=== PATIENT | female | born 1945 | race Caucasian/White ===

== ENCOUNTER 2016-09-24 12:17 | Emergency (ER) | payer OTHER, BC ==
[~2016-09-24] VITALS: Ht 165.1 cm; Wt 100.9 kg
[~2016-09-24 12:17] MED LIST: ASPIRIN81 M2 PO; ATENOLOL50 MG PO; ATORVASTATIN CA20 MG PO; CITALOPRAM HBR40 MG PO; DOXAZOSIN MESYLA8 MG PO; NAPROXEN500 MG PO; NEXIUM; PERCOCET 5/31 TABLET PO
[2016-09-24 13:45] LABS: ADD MIUA? YES; BILIRUBIN NEGATIVE; BLOOD NEGATIVE; COLOR YELLOW ((YELLOW)); GLUCOSE (STRIP) NEGATIVE; KETONES NEGATIVE; LEUKOCYTES SMALL; NITRITE NEGATIVE; PROTEIN (STRIP) NEGATIVE; SPECIFIC GRAVITY 1.017 (1.000-1.030); UROBILINOGEN 0.2 MG/DL (0.2-1.0)
[2016-09-24 13:45] LABS: HEMATOCRIT 33.8 % (36.0-46.0); MCH 27.9 PG (29.0-34.0); MCV 87.3 FL (83-99); MEAN PLAT.VOLUME 11.2 uM^3 (9.5-12.4); PLATELET COUNT 178 K/uL (156-360); RBC DIS.WIDTH-CV 13.3 % (11.8-14.6); RED BLOOD COUNT 3.87 M/uL (3.80-5.20); WHITE BLOOD COUNT 6.1 K/uL (4.1-10.2)
[2016-09-24 13:59] LABS: CHLORIDE 103 mEq/L (99-109); POTASSIUM 4.4 mEq/L (3.7-5.4); SODIUM 139 mEq/L (136-147)
[2016-09-24 14:01] LABS: GLUCOSE 105 mg/dL (70-99)
[2016-09-24 14:02] LABS: ANION GAP 9 MEQ/L (2-14)
[2016-09-24 14:03] LABS: TOTAL BILIRUBIN 0.3 mg/dL (0.0-1.0)
[2016-09-24 14:04] LABS: ALKALINE PHOSPHATASE 92 IU/L (3-129)
[2016-09-24 14:05] LABS: GFR ESTIMATE (CALCULATED) > 59 mL/min/
[2016-09-24 14:06] LABS: UREA NITROGEN (BUN) 13 mg/dL (9-23)
[2016-09-24 14:07] LABS: BACTERIA NONE SEEN /HPF; CASTS NONE SEEN /LPF; CRYSTALS NONE SEEN; EPITHELIAL CELLS RARE /HPF; MUCUS NONE SEEN /LPF; PATHOLOGICAL CAST NONE SEEN; RED BLOOD CELLS 0-5 /HPF (0-5); SMALL ROUND CELL NONE SEEN; UCUL ADDED? NO; WHITE BLOOD CELLS 0-5 /HPF (0-5); YEAST-LIKE CELL NONE SEEN
[2016-09-24] MEDS ORDERED: PERCOCET 5/31 TABLET PO (15:17)
[2016-09-24 15:37] VITALS: BP 160/67
== END 2016-09-24 15:37 | disposition home or self-care (01) ==
LOC: EME 12:17
DX: R10.32 Left lower quadrant pain (principal); I10 Essential (primary) hypertension; E78.5 Hyperlipidemia, unspecified; Z79.82 Long term (current) use of aspirin; Z88.2 Allergy status to sulfonamides; Z88.0 Allergy status to penicillin
CPT/HCPCS: 74177; 80053; 81003; 85027; 99281; 99285; J3010; J7120

== ENCOUNTER 2016-12-08 07:50 | Day surgery (SDC) | payer OTHER, BC ==
[~2016-12-08] VITALS: Ht 165.1 cm; Wt 101.2 kg
[~2016-12-08 07:50] MED LIST changes: +CARDURA8 MG PO; +CELEXA20 MG PO; +LIPITOR20 MG PO; +LO-DOSE ASPIRIN81 M2 PO; +TENORMIN50 MG PO; +TYLENOL EXTRA500 MG PO; +VITAMIN D2000 UNIT PO
[2016-12-08 08:23] VITALS: BP 138/63
[2016-12-08 12:30] VITALS: BP 143/54
[2016-12-08 13:07] VITALS: BP 143/53
== END 2016-12-08 13:20 | disposition home or self-care (01) ==
LOC: SDC 07:50
PROC: 0UDB8ZX Extraction of Endometrium, Via Natural or Artificial Opening Endoscopic, Diagnostic (ICD-10-PCS; principal; 2016-12-08)
DX: R93.8 Abnormal findings on diagnostic imaging of other specified body structures (principal); N85.6 Intrauterine synechiae; E05.20 Thyrotoxicosis with toxic multinodular goiter without thyrotoxic crisis or storm; I10 Essential (primary) hypertension; E78.00 Pure hypercholesterolemia, unspecified; D53.9 Nutritional anemia, unspecified; E66.01 Morbid (severe) obesity due to excess calories; Z68.36 Body mass index [BMI] 36.0-36.9, adult; Z87.891 Personal history of nicotine dependence; Z79.82 Long term (current) use of aspirin; Z88.2 Allergy status to sulfonamides; Z88.0 Allergy status to penicillin; Z82.49 Family history of ischemic heart disease and other diseases of the circulatory system; Z83.3 Family history of diabetes mellitus; Z80.8 Family history of malignant neoplasm of other organs or systems
CPT/HCPCS: 88305; J0360; J0690; J1100; J1170; J1885; J2250; J2405; J3010

== ENCOUNTER 2017-01-01 22:40 | Emergency (ER) | payer OTHER, BC ==
[~2017-01-01] VITALS: Ht 165.1 cm; Wt 100.0 kg
[2017-01-01] MEDS ORDERED: CLINDAMYCIN HC150 MG PO (23:41)
[2017-01-01] MEDS ORDERED: DOXYCYCLINE HY100 MG PO (23:41)
[2017-01-01 23:55] VITALS: BP 189/50
== END 2017-01-01 23:55 | disposition home or self-care (01) ==
LOC: EME 22:40
PROC: 3E0234Z Introduction of Serum, Toxoid and Vaccine into Muscle, Percutaneous Approach (ICD-10-PCS; principal; 2017-01-01)
DX: S61.031A Puncture wound without foreign body of right thumb without damage to nail, initial encounter (principal); W55.01XA Bitten by cat, initial encounter; Z23 Encounter for immunization; Z88.2 Allergy status to sulfonamides; Z88.0 Allergy status to penicillin; Z88.1 Allergy status to other antibiotic agents
CPT/HCPCS: 99281; 99284